=== PATIENT | male | born 1975 | race Hispanic/Latino ===

== ENCOUNTER 2016-08-10 11:27 | Emergency (ER) | payer MEDICAID ==
[2016-08-10 11:28] VITALS: BMI 25.7
[2016-08-10 11:44] VITALS: BP 134/84; PULSE 76; RESP 18; TEMP 98; O2SAT 97
[2016-08-10] MEDS ORDERED: Tobramycin 0.3% OPHT SOLN OU STA (11:49)
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
== END 2016-08-10 12:15 | disposition home or self-care (01) ==
LOC: ED 11:27
DX: H10.9 Unspecified conjunctivitis (principal)

== ENCOUNTER 2016-08-30 19:49 | Emergency (ER) | payer MEDICAID ==
[2016-08-30 20:00] VITALS: BMI 25.0
[2016-08-30 20:03] VITALS: BP 120/81; PULSE 73; TEMP 98
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
[2016-08-30] MEDS ORDERED: Oxycodone/Acetaminophen 5/325 mg Tab PO STA (20:47)
[2016-08-30 21:02] VITALS: RESP 18; O2SAT 99
== END 2016-08-30 21:02 | disposition home or self-care (01) ==
LOC: ED 19:49
DX: K02.9 Dental caries, unspecified (principal)

== ENCOUNTER 2017-02-10 18:35 | Emergency (ER) | payer MEDICAID ==
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
[2017-02-10] MEDS ORDERED: Albuterol-Ipratrop 3 mg / 0.5 (3 ml) UD IH STA (18:48)
[2017-02-10 18:50] VITALS: BMI 23.7
[2017-02-10 18:54] VITALS: RESP 18
[2017-02-10 18:57] VITALS: BP 153/86; PULSE 73; TEMP 98.6; O2SAT 97
[2017-02-10 19:45] LABS: BASO # 0.03 K/mm3 (0.0-2.0); BASO % 0.5 % (0.0-3.0); EOS # 0.4 (0.0-0.7); EOS % 5.8 % (1.5-5.0); GRAN # 2.86 (1.4-6.5); GRAN % 47.5 % (50.0-68.0); HEMATOCRIT 37.9 % (42.0-52.0); LYMPH # 2.3 (1.2-3.4); LYMPH % 37.7 % (22.0-35.0); MEAN CELL VOLUME 90.2 fl (80.0-105.0); MEAN CORPUSCULAR HEMOGLOBIN 31.2 pg (25.0-35.0); MEAN CORPUSCULAR HGB CONC 34.6 g/dl (31.0-37.0); MEAN PLATELET VOLUME 8.6 fl (7.0-11.0); MONO # 0.5 (0.1-0.6); MONO % 8.5 % (1.0-6.0); RED CELL DISTRIBUTION WIDTH 12.8 % (11.5-14.5)
[2017-02-10 20:01] LABS: ALB/GLOB RATIO 1.2 (1.1-1.8); ALKALINE PHOSPHATASE 82 U/L (38-126); ALT/SGPT 98 U/L (7-56); AST/SGOT 80 U/L (17-59); BILIRUBIN,TOTAL 0.8 mg/dL (0.2-1.3); BLOOD UREA NITROGEN 17 mg/dL (7-21); CALCIUM 9.6 mg/dL (8.4-10.5); CARBON DIOXIDE 31 mmol/L (21-33); CHLORIDE 101 mmol/L (98-107); GFR AFRICAN-AMERICAN > 60; GLUCOSE,RANDOM 106 mg/dL (70-110); POTASSIUM 3.9 mmol/L (3.6-5.0); SODIUM 139 mmol/L (132-148); TOTAL PROTEIN 7.5 g/dL (5.8-8.3)
[2017-02-10 20:21] LABS: TROPONIN I < 0.01 ng/mL
--- NOTE | 2017-02-11 08:06 | RAD ---
HISTORY: wheezing COMPARISON: 03/10/2016 FINDINGS: LUNGS: No active pulmonary disease. PLEURA: No significant pleural effusion identified, no pneumothorax apparent. CARDIOVASCULAR: Normal. OSSEOUS STRUCTURES: No significant abnormalities. VISUALIZED UPPER ABDOMEN: Normal. OTHER FINDINGS: None. IMPRESSION: No active disease.
--- NOTE | 2017-02-11 11:44 | CARD ---
APPROVED REPORT EKG Measurement Heart [id number] <Conclusion> Normal sinus rhythm Possible Left atrial enlargement Borderline ECG
== END 2017-02-10 20:32 | disposition home or self-care (01) ==
LOC: ED 18:35
DX: J45.902 Unspecified asthma with status asthmaticus (principal)